=== PATIENT | male | born 1985 | race Caucasian/White ===

== ENCOUNTER 2016-10-26 17:36 | Emergency (ER) | payer OTHER | END 2016-10-26 18:38 | disposition left against medical advice (07) | LOC: ED 17:36 | DX: Z53.21 Procedure and treatment not carried out due to patient leaving prior to being seen by health care provider (principal) ==

== ENCOUNTER 2019-11-10 10:05 | Emergency (ER) | payer OTHER ==
[~2019-11-10] VITALS: Ht 167.6 cm; Wt 70.8 kg
[2019-11-10 10:09] VITALS: Ht 167.6 cm; Wt 70.8 kg
[2019-11-10 10:56] VITALS: BP 146/87
== END 2019-11-10 10:56 | disposition home or self-care (01) ==
LOC: ED 10:05
DX: S01.112A Laceration without foreign body of left eyelid and periocular area, initial encounter (principal); W54.0XXA Bitten by dog, initial encounter; Y93.89 Activity, other specified; Y92.89 Other specified places as the place of occurrence of the external cause; Y99.8 Other external cause status